=== PATIENT | male | born 1970 | race Caucasian/White ===

== ENCOUNTER 2017-05-11 16:03 | Emergency (ER) | payer BC ==
[2017-05-11 16:26] VITALS: BP 172/107
[2017-05-11] MEDS ORDERED: Proparacaine 0.5% Ophth Soln 15 ML Bottle EYERT ONE (16:32)
[2017-05-11] MEDS ORDERED: Erythromycin Base 0.5% Ophth Oint 1 GM Tube EYERT ONE (16:59)
--- NOTE | 2017-05-11 17:01 | EDM.PDOC ---
ED HPI GENERAL MEDICAL PROBLEM - General Chief Complaint: Eye Problems Stated Complaint: SOMETHING IN RIGHT EYE Time Seen by Provider: 05/11/17 16:45 Source of Information: Reports: Patient History Limitations: Reports: No Limitations - History of Present Illness INITIAL COMMENTS - FREE TEXT/NARRATIVE: Patient is a 47-year-old male presents ED complaining of a foreign body sensation in his right eye. Patient believes it was a eyelash. He awoke with this sensation. Has been rubbing his eyes excessively and notes the eyelids have become swollen. There has been some excessive tearing with pain to the upper eyelid. It is hard to open his eyes. Patient does wear glasses. Denies any vision changes. No purulent drainage. Right Eye Pain Score (Numeric/FACES): 4 - Related Data Allergies Allergy/AdvReac Type Severity Reaction Status Date / Time Penicillins Allergy Rash Verified 05/11/17 16:44 Home Meds: Home Meds . [No Known Home Meds] 05/11/17 [History] Past Medical History - Past Health History Medical/Surgical History: Denies Medical/Surgical History - Past Surgical History GI Surgical History: Reports: Appendectomy Social & Family History - Tobacco Use Smoking Status *Q: Current Every Day Smoker Years of Tobacco use: 30 Packs/Tins Daily: 0.3 Second Hand Smoke Exposure: No - Caffeine Use Caffeine Use: Reports: Coffee, Soda, Tea - Alcohol Use Number of Drinks Per Day: 0 - Recreational Drug Use Recreational Drug Use: No ED ROS GENERAL - Review of Systems Review Of Systems: See Below Constitutional: Reports: No Symptoms HEENT: Reports: Eye Pain (Right eye, sensation foreign objects present), Vision Change (Intermittent blurriness with excessive watering) ED EXAM GENERAL W FULL EYE - Physical Exam Exam: See Below Exam Limited By: No Limitations General Appearance: Alert, WD/WN, No Apparent Distress Eye Exam: Bilateral Eye: EOMI, PERRL Visual Acuity (R) 20/: 20 Visual Acuity (L) 20/: 30 With Correction: No Eyelids: Right: Edema, Erythema, Lid Everted for Exam, Left: Normal Appearance Conjunctiva & Sclera: Right: Injected Cornea Exam: Right: Corneal Abrasion (7 o'clock), Examined with Flourescein Extraocular Movements: Bilateral: Intact Pupillary Size: Bilateral: 4 mm Pupillary Reaction: Right: Brisk Ears: Hearing Grossly Normal Nose: Normal Inspection Throat/Mouth: Normal Voice, No Airway Compromise Neck: Normal Inspection, Supple Respiratory/Chest: No Respiratory Distress, No Accessory Muscle Use Cardiovascular: Normal Peripheral Pulses, Regular Rate, Rhythm Neurological: Alert, Oriented, CN II-XII Intact, Normal Cognition, No Motor/ Sensory Deficits Psychiatric: Normal Affect, Normal Mood ED EYE w/ Add Procedure - Eye Procedure Alcaine Drops Administered: Yes Course - Vital Signs Last Recorded V/S: Last Vital Signs Temp 97.8 F 05/11/17 16:14 Pulse 60 05/11/17 16:14 Resp 20 05/11/17 16:14 BP 172/107 H 05/11/17 16:25 Pulse Ox 97 05/11/17 16:14 - Orders/Labs/Meds Meds: Medications Discontinued Medications Generic Name Dose Route Start Last Admin Trade Name Cami PRN Reason Stop Dose Admin Erythromycin 1 gm 05/11/17 16:59 05/11/17 17:06 Erythromycin 0.5% Ophth Oint EYERT 05/11/17 17:00 1 dose ONETIME ONE Administration Proparacaine HCl 2 ml 05/11/17 16:32 05/11/17 16:34 Proparacaine 0.5% Ophth Soln EYERT 05/11/17 16:33 2 drop ONETIME ONE Administration - Re-Assessments/Exams Free Text/Narrative Re-Assessment/Exam: Corneal abrasion to the 7 o' clock location. Ordered erythromycin ointment to be applied. Departure - Departure Time of Disposition: 16:59 Disposition: Home, Self-Care 01 Condition: Good Clinical Impression: Corneal abrasion Qualifiers: Encounter type: initial encounter Laterality: right Qualified Code(s): S05.01XA - Injury of conjunctiva and corneal abrasion without foreign body, right eye, initial encounter - Discharge Information Instructions: Corneal Abrasion, [id number] Referrals: PCP,None [Primary Care Provider] - Forms: ED Department Discharge Additional Instructions: Apply 1 cm ribbon of the erythromycin ointment to the right eye four times a day for the next 5 days. Take ibuprofen and tylenol in alternating fashion for pain. Followup with a art handler this coming Friday/Fri for reevaluation. Do not rub your eyes. Return back to the E.D. for any new or worsening symptoms.
== END 2017-05-11 17:00 | disposition home or self-care (01) ==
LOC: JD.ED 16:03
DX: S05.01XA Injury of conjunctiva and corneal abrasion without foreign body, right eye, initial encounter (principal); F17.210 Nicotine dependence, cigarettes, uncomplicated; Z88.0 Allergy status to penicillin; Z90.49 Acquired absence of other specified parts of digestive tract; X58.XXXA Exposure to other specified factors, initial encounter
CPT/HCPCS: 99283; A9270